=== PATIENT | female | born 1975 | race Caucasian/White ===

== ENCOUNTER 2024-05-10 21:22 | Emergency (ER) | payer OTHER ==
[2024-05-10 21:29] VITALS: BP 130/73; PULSE 71; RESP 16; TEMP 98.6; BMI 31.6
[2024-05-10 22:07] LABS: HEMATOCRIT 38.2 % (32.4-45.2); HEMOGLOBIN 12.5 G/dL (10.7-15.3); MCH 26.5 pg (25.7-33.7); MCHC 32.6 g/dl (32.0-36.0); MEAN CELL VOLUME 81.2 fl (80-96); MEAN PLT VOLUME 8.6 fl (7.5-11.1); PLATELET COUNT 274.3 10^3/uL (134-434); RBC 4.71 10^6/uL (3.60-5.2); RDW 16.5 % (11.6-15.6); WHITE BLOOD COUNT 9.3 10^3/uL (4.0-10.8)
[2024-05-10 22:29] LABS: ALBUMIN 4.5 g/dl (3.4-5.0); BILIRUBIN,TOTAL 0.2 mg/dl (0.2-1); CALCIUM 9.5 mg/dl (8.5-10.1); CREATININE 0.9 mg/dl (0.6-1.3); POTASSIUM 3.8 mmol/L (3.5-5.1); TOT PROT 7.9 g/dl (6.4-8.2)
[2024-05-10] MEDS ORDERED: DALBAVANCIN HCL 500 MG VIAL (RESTRICTED TO ID ONLY) IVPB ONE (23:16)
[2024-05-10] MEDS: DALBAVANCIN HCL 1,500 MG in DEXTROSE 5%-WATER - 500 ML IVPB ONE (23:33)
== END 2024-05-11 00:16 | disposition home or self-care (01) ==
LOC: FER 21:22
DX: L03.116 Cellulitis of left lower limb (principal); M79.89 Other specified soft tissue disorders
CPT/HCPCS: 36415; 80053; 85027; 93971-TC; 99284-25; J0875